=== PATIENT | female | born 1955 | race Asian ===

== ENCOUNTER 2024-12-22 14:40 | Inpatient (IN) | payer MEDICARE ==
[~2024-12-22] VITALS: Ht 152.4 cm; Wt 76.5 kg
[2024-12-22] MEDS ORDERED: GLUC-236 PO (14:53)
[2024-12-22] MEDS ORDERED: HYDR25TA2 PO (14:53)
[2024-12-22] MEDS ORDERED: FINE10TA PO (14:53)
[2024-12-22] MEDS ORDERED: OLME40TA70 PO (14:53)
[2024-12-22] MEDS ORDERED: MULT-1192 PO (14:53)
[2024-12-22] MEDS ORDERED: GLIP5TAB16 PO (14:53)
[2024-12-22] MEDS ORDERED: [UNRECOGNIZED DRUG - CODE] PO (14:53)
[2024-12-22] MEDS ORDERED: SITA25 PO (14:53)
[2024-12-22] MEDS ORDERED: AMLO10TA55 PO (14:53)
[2024-12-22] MEDS ORDERED: ROSU20TA98 PO (14:53)
[2024-12-22] MEDS ORDERED: ASPI-1450 PO (14:53)
[2024-12-22] MEDS ORDERED: METF-1211 PO (14:53)
[2024-12-22] MEDS ORDERED: CARV12 PO (14:53)
[2024-12-22] MEDS ORDERED: INSLAN SQ (14:53)
[2024-12-22 15:10] LABS: PLATELET COUNT (AUTO) 194 K/uL (150-450); RED BLOOD CELL COUNT(AUTO) 3.15 MIL/uL (4.00-5.20); RED CELL DISTRIBUTION WIDTH 12.5 % (11.5-14.5); WHITE BLOOD COUNT (AUTO) 5.0 K/uL (4.5-11.0)
[2024-12-22 15:20] LABS: CALCIUM, TOTAL 8.8 mg/dL (8.8-10.5); CREATININE 2.98 mg/dL (0.60-1.30); GLOMERULAR FILTR. RATE CALC 16 mL/min (>60); GLUCOSE,RANDOM 233 mg/dL (70-110); SODIUM SERUM 140 mmol/L (136-145); UREA NITROGEN, BLOOD 70 mg/dL (7-18)
[2024-12-22 15:26] LABS: ASPARTATE AMINOTRANSFERASE 23.0 U/L (15-37); TOTAL PROTEIN, SERUM 7.4 g/dL (6.4-8.2)
[2024-12-22 15:30] LABS: TROPONIN I-HIGH SENSITIVITY 5 ng/L (<51)
[2024-12-22] MEDS ORDERED: DEXTROSE 50%-WATER 25 GM/50 ML SYRINGE IVP PRN (15:45)
[2024-12-22] MEDS ORDERED: ACETAMINOPHEN 325 MG TABLET PO PRN (15:45)
[2024-12-22] MEDS: HEPARIN SODIUM,PORCINE 5,000 UNITS/ML VIAL SQ SCH (16:01)
[2024-12-22] MEDS: ONDANSETRON HCL 4 MG/2 ML VIAL IVP PRN (16:01)
[2024-12-22] MEDS: SODIUM CHLORIDE 0.9% 1,000 ML IV ONE (16:01)
[2024-12-22 17:59] LABS: APPEARANCE,URINE CLEAR (CLEAR); GLUCOSE, URINE (UA) NEGATIVE (NEGATIVE); LEUKOCYTE ESTERASE ,URINE NEGATIVE (NEGATIVE); NITRATE,URINE NEGATIVE (NEGATIVE); OCCULT BLOOD,URINE TRACE (NEGATIVE); SPECIFIC GRAVITIY, URINE 1.018 (1.003-1.030)
[2024-12-22 18:20] VITALS: BP 105/75; PULSE 72; RESP 18; TEMP 98.4; O2SAT 96
[2024-12-22 18:39] LABS: SQUAMOUS EPITHELIAL CELL,UR Few /LPF (None Seen)
[2024-12-22 19:12] VITALS: BP 115/61; PULSE 76; RESP 18; TEMP 97.9; O2SAT 98
[2024-12-22] MEDS: DOCUSATE SODIUM 100 MG CAPSULE PO SCH (20:43)
[2024-12-22 23:49] VITALS: BP 95/50; PULSE 72; RESP 18; TEMP 97.9; O2SAT 98
[2024-12-23 04:30] VITALS: BP 124/75; PULSE 77; RESP 18; TEMP 97.9; O2SAT 100
[2024-12-23] MEDS: INSULIN LISPRO 100 UNITS/ML SQ PRN (06:22)
[2024-12-23 07:03] LABS: PLATELET COUNT (AUTO) 185 K/uL (150-450); RED BLOOD CELL COUNT(AUTO) 3.07 MIL/uL (4.00-5.20); RED CELL DISTRIBUTION WIDTH 12.4 % (11.5-14.5); WHITE BLOOD COUNT (AUTO) 4.1 K/uL (4.5-11.0)
[2024-12-23 07:17] LABS: CALCIUM, TOTAL 8.9 mg/dL (8.8-10.5); CREATININE 2.34 mg/dL (0.60-1.30); GLOMERULAR FILTR. RATE CALC 21.0 mL/min (>60); GLUCOSE,RANDOM 115.0 mg/dL (70-110); SODIUM SERUM 143.0 mmol/L (136-145); UREA NITROGEN, BLOOD 56.0 mg/dL (7-18)
[2024-12-23 08:00] VITALS: BP 114/63; PULSE 78; RESP 16; TEMP 97.9; O2SAT 98
[2024-12-23 08:26] LABS: GLUCOMETER DEV NAME(LOC) 5S.1E; GLUCOSE,POINT OF CARE 202 MG/DL (70-110)
[2024-12-23 08:26] LABS: GLUCOMETER DEV NAME(LOC) 5S.1E; GLUCOSE,POINT OF CARE 128 MG/DL (70-110)
[2024-12-23 08:26] LABS: GLUCOMETER DEV NAME(LOC) 5S.2E; GLUCOSE,POINT OF CARE 151 MG/DL (70-110)
[2024-12-23] MEDS: FAMOTIDINE 20 MG TABLET PO SCH (08:50)
[2024-12-23 12:10] VITALS: BP 108/62; PULSE 73; RESP 17; TEMP 97.9; O2SAT 99
[2024-12-23 13:11] LABS: GLUCOMETER DEV NAME(LOC) 5N.2C; GLUCOSE,POINT OF CARE 151 MG/DL (70-110)
[2024-12-23 16:00] VITALS: BP 120/60; PULSE 81; RESP 17; TEMP 98.1; O2SAT 97
[2024-12-23 18:21] LABS: GLUCOMETER DEV NAME(LOC) 5S.2E; GLUCOSE,POINT OF CARE 230 MG/DL (70-110)
[2024-12-23 20:42] VITALS: BP 103/59; PULSE 79; RESP 17; TEMP 98.1; O2SAT 96
[2024-12-23 22:26] LABS: GLUCOMETER DEV NAME(LOC) 5N.2C; GLUCOSE,POINT OF CARE 130 MG/DL (70-110)
[2024-12-24 00:22] VITALS: BP 124/73; PULSE 77; RESP 18; TEMP 98.1; O2SAT 97
[2024-12-24 04:18] VITALS: BP 131/65; PULSE 75; RESP 18; TEMP 97.9; O2SAT 99
[2024-12-24 06:25] LABS: GLUCOMETER DEV NAME(LOC) 5S.2E; GLUCOSE,POINT OF CARE 170 MG/DL (70-110)
[2024-12-24 06:41] LABS: PLATELET COUNT (AUTO) 185 K/uL (150-450); RED BLOOD CELL COUNT(AUTO) 3.12 MIL/uL (4.00-5.20); RED CELL DISTRIBUTION WIDTH 12.7 % (11.5-14.5); WHITE BLOOD COUNT (AUTO) 4.3 K/uL (4.5-11.0)
[2024-12-24 06:49] LABS: CALCIUM, TOTAL 9.0 mg/dL (8.8-10.5); CREATININE 2.04 mg/dL (0.60-1.30); GLOMERULAR FILTR. RATE CALC 24.0 mL/min (>60); GLUCOSE,RANDOM 158.0 mg/dL (70-110); SODIUM SERUM 142.0 mmol/L (136-145); UREA NITROGEN, BLOOD 46.0 mg/dL (7-18)
[2024-12-24 08:15] VITALS: BP 100/73; PULSE 76; RESP 16; TEMP 98.2; O2SAT 99
[2024-12-24 11:51] VITALS: BP 138/67; PULSE 80; RESP 17; TEMP 97.9; O2SAT 98
[2024-12-24 19:45] LABS: GLUCOMETER DEV NAME(LOC) 5S.2E; GLUCOSE,POINT OF CARE 165 MG/DL (70-110)
== END 2024-12-24 13:15 | disposition home or self-care (01) | DRG 74 ==
LOC: EMS 14:41 → EDH 15:35 → 5N 18:06
PROVIDERS: ADMIT Internal Medicine; ATTEND Internal Medicine
DX: G90.89 Other disorders of autonomic nervous system (principal); D63.8 Anemia in other chronic diseases classified elsewhere; N17.9 Acute kidney failure, unspecified; I12.9 Hypertensive chronic kidney disease with stage 1 through stage 4 chronic kidney disease, or unspecified chronic kidney disease; E11.65 Type 2 diabetes mellitus with hyperglycemia; N18.30 Chronic kidney disease, stage 3 unspecified; I95.9 Hypotension, unspecified; E78.00 Pure hypercholesterolemia, unspecified; E11.22 Type 2 diabetes mellitus with diabetic chronic kidney disease; Z83.3 Family history of diabetes mellitus; Z82.49 Family history of ischemic heart disease and other diseases of the circulatory system; Z79.899 Other long term (current) drug therapy; Z79.82 Long term (current) use of aspirin
CPT/HCPCS: 71045; 80048; 80076; 81001; 82962; 83880; 84484; 85025; 93005; 96361; 96372; 96374; 99285; J1644; J2405; J7030; 36415-L1; 36415-TC